=== PATIENT | male | born 2000 | race Caucasian/White ===

== ENCOUNTER 2022-12-30 04:10 | Emergency (ER) | payer OTHER ==
[~2022-12-30] VITALS: Ht 180.3 cm; Wt 130.0 kg
[2022-12-30 04:49] VITALS: TEMP 98.6
[2022-12-30] MEDS ORDERED: IBUPROFEN 600 MG TABLET PO ONE (06:30)
[2022-12-30] MEDS ORDERED: METHOCARBAMOL 500 MG TABLET PO ONE (06:30)
[2022-12-30] MEDS ORDERED: IBUP-1492 PO (06:35)
[2022-12-30] MEDS ORDERED: METH-659 PO (06:35)
[2022-12-30 06:49] VITALS: BP 138/86; PULSE 73; RESP 16
== END 2022-12-30 06:52 | disposition home or self-care (01) ==
LOC: EMS 04:14
DX: M54.41 Lumbago with sciatica, right side (principal); F12.90 Cannabis use, unspecified, uncomplicated
CPT/HCPCS: 73521; 99283